=== PATIENT | female | born 1985 | race African-American/Black ===

== ENCOUNTER 2024-09-30 16:24 | Emergency (ER) | payer OTHER ==
[2024-09-30 16:38] VITALS: BP 119/78; PULSE 84; RESP 19; TEMP 98.6; BMI 26.6
[2024-09-30] MEDS ORDERED: ACETAMINOPHEN 500 MG TABLET (FP) ONE (17:23)
[2024-09-30] MEDS ORDERED: LIDOCAINE 4% PATCH TP ONE (17:23)
[2024-09-30] MEDS: ACETAMINOPHEN 500 MG TABLET (FP) PO ONE (17:29)
[2024-09-30] MEDS: LIDOCAINE 4% PATCH TP ONE (17:29)
[2024-09-30 17:45] LABS: HCG,QUALITATIVE URINE Negative
[2024-09-30] MEDS ORDERED: KETOROLAC TROMETHAMINE 30 MG/1 ML VIAL ONE (18:02)
[2024-09-30] MEDS: KETOROLAC TROMETHAMINE 30 MG/1 ML VIAL IM ONE (18:13)
[2024-09-30 18:25] LABS: URINE APPEARANCE CLEAR; URINE BILIRUBIN NEGATIVE (NEGATIVE); URINE COLOR YELLOW; URINE GLUCOSE (UA) NEGATIVE (NEGATIVE); URINE KETONE NEGATIVE (NEGATIVE); URINE LEUK ESTERASE NEGATIVE (NEGATIVE); URINE NITRITE NEGATIVE (NEGATIVE); URINE PROTEIN NEGATIVE (NEGATIVE); URINE UROBILINOGEN 0.2 mg/dL (0.2-1.0)
[2024-09-30] MEDS ORDERED: IBUPROFEN 400 MG TABLET (FP) PO ONE (18:49)
[2024-09-30] MEDS: IBUPROFEN 400 MG TABLET (FP) PO ONE (18:52)
== END 2024-09-30 18:53 | disposition home or self-care (01) ==
LOC: JER 16:24 → JERFT 16:24
DX: M54.6 Pain in thoracic spine (principal); M54.50 Low back pain, unspecified; X50.0XXA Overexertion from strenuous movement or load, initial encounter; Y99.0 Civilian activity done for income or pay
CPT/HCPCS: 81003; 84703; 87086; 99283-25